=== PATIENT | male | born 1945 | race Caucasian/White ===

== ENCOUNTER 2018-05-06 00:19 | Inpatient (IN) | payer MEDICARE, OTHER ==
[~2018-05-06] VITALS: Ht 182.9 cm; Wt 111.5 kg
[2018-05-06 01:04] LABS: Basophils # (auto) 0.1 uL; Basophils % (auto) 0.6 % (0.0-2.0); Eosinophils # (auto) 0.3 uL; Eosinophils % (auto) 2.8 % (0.0-7.0); Hematocrit 37.8 % (41.0-53.0); Hemoglobin 13.3 g/dL (13.5-17.5); Lymphocytes # (auto) 3.9 uL; Mean Corpuscular Hemoglobin 36.1 pg (28.0-32.0); Mean Corpuscular Hgb Conc. 35.3 g/dL (32.0-36.0); Mean Corpuscular Volume 102.2 fL (80.0-100.0); Monocytes # (auto) 1.4 uL; Monocytes % (auto) 14.8 % (0.0-12.0); Neutrophils # (auto) 3.9 uL; Neutrophils % (auto) 40.8 % (37.0-80.0); Nucleated Red Blood Cells % 0.1 %; Platelet Count (auto) 161 10^3/uL (140-450); Red Cell Distribution Width 14.7 % (11.8-14.3); White Blood Cell 9.6 10^3/uL (4.4-10.8)
[2018-05-06 01:19] LABS: INR 1.23 (0.9-1.15); Partial Thromboplastin Time 30.5 sec (23.78-33.04)
[2018-05-06 01:22] LABS: Albumin 3.4 g/dL (3.4-5.0); BUN/Creatinine Ratio 17.7
[2018-05-06 01:23] LABS: Potassium 2.8 mmol/L (3.5-5.1)
[2018-05-06 01:25] LABS: Bilirubin, Total 2.6 mg/dL (0.2-1.0); Total Protein 7.4 g/dL (6.4-8.2)
[2018-05-06] MEDS ORDERED: POTASSIUM CHL 20 Meq TABLET PO ONE (01:30)
[2018-05-06] MEDS ORDERED: KETOROLAC TROMETH 30 MG/ML 1ML VIAL IV ONE ×2 (01:45→16:15)
[2018-05-06] MEDS ORDERED: fentaNYL CITRATE 100 MCG/2 ML VL IV ONE (01:45)
[2018-05-06] MEDS: POTASSIUM CHL 20MEQ/100ML 100 ML IV SCH ×3 (03:20→05:30)
[2018-05-06] MEDS ORDERED: ONDANSETRON HCL 4 MG/2 ML VIAL IV ONE (06:00)
[2018-05-06] MEDS ORDERED: HYDROmorphone HCL 2 MG/ML VL IV ONE (06:00)
[2018-05-06] MEDS ORDERED: MIDAZOLAM HCL 5 MG/ML-1ML VIAL IV ONE (07:15)
[2018-05-06] MEDS ORDERED: MORPHINE SULFATE 4 MG/ML SYR/VIAL IV PRN (08:15)
[2018-05-06] MEDS ORDERED: ONDANSETRON HCL 4 MG/2 ML VIAL IV PRN (08:15)
[2018-05-06] MEDS ORDERED: ACETAMINOPHEN 500 MG TAB PO PRN (08:15)
[2018-05-06] MEDS ORDERED: POTASSIUM CHL 20MEQ/100ML 100 ML IV ONE (13:00)
[2018-05-06] MEDS: MAGNESIUM SULFATE 1GM/100ML 100 ML IV SCH ×2 (13:17→14:05)
[2018-05-06] MEDS: SOD CHL 0.9%/ KCL 40MEQ 1,000 ML IV SCH (13:54)
[2018-05-06] MEDS ORDERED: ceFAZolin 1GM/50ML 50 ML IV ONE (15:15)
[2018-05-06] MEDS ORDERED: fentaNYL CITRATE 10 ML ONE (15:51)
[2018-05-06] MEDS ORDERED: fentaNYL CITRATE 100 MCG/2 ML VL ONE (15:51)
[2018-05-06] MEDS ORDERED: ROCURONIUM 10MG/ML 10ML VIAL IV ONE (15:51)
[2018-05-06] MEDS ORDERED: SODIUM CHLORIDE LOCK 10 ML ONE (15:51)
[2018-05-06] MEDS ORDERED: MIDAZOLAM HCL 1MG/1ML-2 ML VIAL ONE (15:51)
[2018-05-06] MEDS ORDERED: PROPOFOL 10 MG/ML 20 ML IV ONE (15:51)
[2018-05-06] MEDS ORDERED: HYDROmorphone HCL 2 MG/ML VL IV PRN (16:15)
[2018-05-06] MEDS ORDERED: METOCLOPRAMIDE HCL 5MG/ml INJ 2ml VIAL IV ONE (16:15)
[2018-05-06 19:45] VITALS: BP 130/70
--- NOTE | 2018-05-06 19:45 | NUR ---
S/P OR assessment Patient admitted to room 281A following ORIF of R ankle. Vital signs taken, surgical site assessed for redness, swelling, or bleeding; none noted on dressing/soft cast. Patient instructed on need to inform staff immediately for any pain, swelling, bleeding. Patient verbalized understanding. Alert and appropriately responsive. Ice packs x2 to RLE. Bed low. HOB elev in semi-Dietz's position. Call light attached to R HOB rail.
[2018-05-06 20:00] VITALS: BP 130/70
[2018-05-06 21:37] LABS: Albumin 2.6 g/dL (3.4-5.0); BUN/Creatinine Ratio 19.2; Calcium 7.9 mg/dL (8.5-10.1); Potassium 3.2 mmol/L (3.5-5.1)
[2018-05-06] MEDS: ceFAZolin 1GM/50ML 50 ML IV SCH (21:37)
[2018-05-06 21:40] LABS: Bilirubin, Total 2.1 mg/dL (0.2-1.0); Total Protein 6.2 g/dL (6.4-8.2)
[2018-05-07] MEDS ORDERED: HYDR-4683 PO (02:27)
[2018-05-07 05:28] VITALS: BP 139/80
[2018-05-07] MEDS: ceFAZolin 1GM/50ML 50 ML IV SCH ×2 (06:05→13:57)
[2018-05-07 07:38] LABS: Basophils # (auto) 0 uL; Monocytes # (auto) 0.5 uL
[2018-05-07 07:41] LABS: Basophils % (auto) 0.3 % (0.0-2.0); Eosinophils # (auto) 0.3 uL; Eosinophils % (auto) 6.9 % (0.0-7.0); Hematocrit 33.4 % (41.0-53.0); Hemoglobin 11.8 g/dL (13.5-17.5); Lymphocytes % (auto) 24.5 % (10.0-50.0); Mean Corpuscular Hemoglobin 36.4 pg (28.0-32.0); Mean Corpuscular Hgb Conc. 35.4 g/dL (32.0-36.0); Mean Corpuscular Volume 102.9 fL (80.0-100.0); Monocytes % (auto) 11.8 % (0.0-12.0); Neutrophils # (auto) 2.2 uL; Neutrophils % (auto) 56.5 % (37.0-80.0); Nucleated Red Blood Cells % 0.1 %; Platelet Count (auto) 109 10^3/uL (140-450); Red Blood Cells 3.25 10^6/uL (4.5-5.90); Red Cell Distribution Width 14.6 % (11.8-14.3); White Blood Cell 3.9 10^3/uL (4.4-10.8)
--- NOTE | 2018-05-07 08:00 | NUR ---
Opening Shift Note Assumed care of patient, awake and alert. No S/S of distress/SOB or pain. Instructed on POC and to call for assist PRN, will continue to monitor for changes Q1hr and PRN. Bed is in the lowest position and call light within reach.
[2018-05-07 08:03] LABS: Calcium 7.9 mg/dL (8.5-10.1); Potassium 3.2 mmol/L (3.5-5.1)
[2018-05-07 08:18] LABS: BUN/Creatinine Ratio 23.4
[2018-05-07 09:00] VITALS: BP 111/65
[2018-05-07] MEDS: HYDROcodone-ACET 5/325MG TAB PO PRN ×2 (10:14→21:15)
[2018-05-07 10:58] LABS: Urine Bacteria FEW /hpf (None Seen); Urine Blood Negative /uL (Negative); Urine Hyaline Cast FEW /lpf (0 - 2); Urine Specific Gravity 1.025 (1.001-1.035); Urine WBC 2 /hpf (0 - 3)
[2018-05-07] MEDS ORDERED: POTASSIUM CHLORIDE 8 MEQ TAB PO ONE (11:45)
[2018-05-07 13:00] VITALS: BP 88/42
--- NOTE | 2018-05-07 17:46 | NUR ---
Cooling measure provided for 99.8 degree fever will continue to monitor
[2018-05-07] MEDS: SOD CHL 0.9%/ KCL 40MEQ 1,000 ML IV SCH ×2 (17:47→21:14)
[2018-05-07 18:01] VITALS: BP 100/49
--- NOTE | 2018-05-07 19:55 | NUR ---
open note assumed care of pt. upon entering room, pt awake and alert. no s/s distress noted or expressed. pt update on plan of care. dressing on right foot is clean dry and intact. pt has sensation in foot and is able to move foot and toes. cap refill less than 3 seconds on plantar aspect of foot, toes and nail beds. pt complaints of pain 5/0-10 scale in the affected foot. requests norco "i take that at home", will medicate per MD order. call light in reach. no additional questions or concerns at this time. will continue to monitor.
[2018-05-07 21:47] VITALS: BP 100/47
[2018-05-08 05:18] VITALS: BP 97/48
[2018-05-08] MEDS: SOD CHL 0.9%/ KCL 40MEQ 1,000 ML IV SCH ×3 (05:30→22:19)
[2018-05-08 06:43] LABS: Basophils # (auto) 0 uL; Eosinophils # (auto) 0.2 uL; Monocytes # (auto) 0.7 uL; Nucleated Red Blood Cells % 0.1 %; White Blood Cell 4.4 10^3/uL (4.4-10.8)
[2018-05-08 06:44] LABS: BUN/Creatinine Ratio 23.6; Calcium 7.7 mg/dL (8.5-10.1); Potassium 3.3 mmol/L (3.5-5.1)
[2018-05-08 06:45] LABS: Basophils % (auto) 0.2 % (0.0-2.0); Eosinophils % (auto) 4.5 % (0.0-7.0); Hematocrit 28.7 % (41.0-53.0); Hemoglobin 10.2 g/dL (13.5-17.5); Lymphocytes # (auto) 1.5 uL; Lymphocytes % (auto) 34.7 % (10.0-50.0); Mean Corpuscular Hemoglobin 36.8 pg (28.0-32.0); Mean Corpuscular Hgb Conc. 35.7 g/dL (32.0-36.0); Mean Corpuscular Volume 102.9 fL (80.0-100.0); Monocytes % (auto) 15.1 % (0.0-12.0); Neutrophils % (auto) 45.5 % (37.0-80.0); Platelet Count (auto) 97 10^3/uL (140-450); Red Blood Cells 2.79 10^6/uL (4.5-5.90); Red Cell Distribution Width 14.3 % (11.8-14.3)
--- NOTE | 2018-05-08 07:33 | NUR ---
OPENING NOTE Assumed care of patient from NOC RNAndrea. Patient awake and alert with no S/S of distress/SOB or pain. Dressing to right foot clean, dry and intact. Patient able to move toes right foot and cap refill is <3 seconds. Instructed on POC and to call for assist PRN, verbalized understanding. Bed in lowest, locked position with side rails up x2. Fall precautions in place and call light within reach. Will continue to monitor for changes Q1hr and PRN.
[2018-05-08] MEDS: HYDROmorphone HCL 2 MG/ML VL IV PRN ×2 (08:47→15:42)
[2018-05-08 09:00] VITALS: BP 100/63
[2018-05-08 13:00] VITALS: BP 98/54
--- NOTE | 2018-05-08 13:17 | NUR ---
OUT OF BED Patient is out of bed with PT. No S/S of distress noted.
--- NOTE | 2018-05-08 16:54 | NUR ---
assessment Patient is a 73 year old male who is alert and oriented. Patients cognitive abilities are intact. Prior to admission patient lived home with family and functioned independently. Patient informed me he is able to care for his own ADLs. Per patient he will return home to his prior living arrangements post discharge and family will transport him home. Patient informed me he slipped at home and fractured his ankle. Patient may benefit from home health PT and nursing post discharge. Patients PCP is Dr Banerjee. I informed patient he has a right to speak to a director of social media marketing regarding all care. I informed patient he has a right to participate in any and all discharge planning. Patient is aware of visiting hours on the hospital floor. I informed patient he has a right to privacy. Patient has a POA and advanced directive. Patient verbalized understanding and agreed to discharge plan. Addendum: 05/08/18 at 1657 by Alissa MENDES Amended: Links added.
[2018-05-08 17:07] VITALS: BP 118/77
--- NOTE | 2018-05-08 19:20 | NUR ---
CLOSING NOTE Endorsed care of patient to NOC Rommel QUINTERO.
--- NOTE | 2018-05-08 19:30 | NUR ---
RECEIVED PATIENT LYING IN BED, AWAKE, ALERT, ORIENTED X4. NO S/S OF RESPIRATORY DISTRESS, DENIES SOB AND CHEST PAIN. ORIENTED ON PLAN OF CARE. BED IS LOCKED AND IN LOWEST LEVEL, SIDE RAILS UP 2X, BED AL;ARM ON. CALL LIGHT WITHIN REACH. WILL CONTINUE TO MONITOR.
[2018-05-08] MEDS: HYDROcodone-ACET 5/325MG TAB PO PRN (20:24)
[2018-05-08 22:00] VITALS: BP 146/80
[2018-05-09 05:00] VITALS: BP 155/91
[2018-05-09] MEDS: SOD CHL 0.9%/ KCL 40MEQ 1,000 ML IV SCH ×3 (05:30→18:22)
--- NOTE | 2018-05-09 07:36 | NUR ---
CARE ENDORSED TO AM SHIFT RN
--- NOTE | 2018-05-09 07:40 | NUR ---
Opening Shift Note REceived report from Rommel QUINTERO. Assumed care of patient, awake and alert. No S/S of distress/SOB or pain. NOted right hand swollen due to IV infiltration.Noted right leg with cam boots with dry & intact dressing. Instructed on POC and to call for assist PRN, will continue to monitor for changes Q1hr and PRN.
[2018-05-09 08:00] VITALS: BP 130/70
[2018-05-09 09:00] VITALS: BP 130/70
--- NOTE | 2018-05-09 10:00 | NUR ---
PT REQUESTED THAT P.T. BE DONE LATER.
[2018-05-09] MEDS: HYDROmorphone HCL 2 MG/ML VL IV PRN (10:30)
--- NOTE | 2018-05-09 11:15 | NUR ---
Dr. Rolf Egan at bedside.
--- NOTE | 2018-05-09 11:48 | NUR ---
INFORMED DR. Rolf GILLESPIE ABOUT THE PATIENT'S NEED FOR HOME HEALTH P.T. SAID THAT HE WILL CHECK AND HE WILL BE THE ONE TO PUT THE ORDER IN TODAY.
[2018-05-09 13:16] VITALS: BP 108/60
--- NOTE | 2018-05-09 14:30 | NUR ---
NUTRITION ASSESSMENT NOTES Please refer to link notes of nutrition screen form filed under the intervention section of the plan of care for further details. Est. Needs: 2100 kcal to 1650 kcal (20-25 kcal/kgBW), 84 gms to 106 gms pro (0.8-1.0 gms/kgBW). Will continue to monitor pertinent labs and reassess nutrient needs prn Thank you. Addendum: 05/09/18 at [address] Amended: Links added.
--- NOTE | 2018-05-09 14:57 | NUR ---
PATIENT HAS BEEN ACCEPTED BY [facility]. START OF CARE WILL BE 24 TO 48 HOURS AFTER DISCHARGE. [phone]
[2018-05-09] MEDS: HYDROcodone-ACET 5/325MG TAB PO PRN (16:03)
[2018-05-09 17:00] VITALS: BP 145/82
[2018-05-09 22:00] VITALS: BP 121/54
[2018-05-10] MEDS: HYDROcodone-ACET 5/325MG TAB PO PRN (00:08)
[2018-05-10] MEDS: SOD CHL 0.9%/ KCL 40MEQ 1,000 ML IV SCH ×3 (00:48→13:40)
[2018-05-10 05:00] VITALS: BP 150/98
--- NOTE | 2018-05-10 07:28 | NUR ---
CARE ENDORSED TO AM SHIFT RN
[2018-05-10 09:29] VITALS: BP 129/77
[2018-05-10 11:38] VITALS: BP 129/77
[2018-05-10 13:20] VITALS: BP 108/59
== END 2018-05-10 15:23 | disposition home health service (06) | DRG 488 ==
LOC: ER 00:23 → OVERFLOW 08:15 → WEST WING 19:45
PROVIDERS: ADMIT Nurse Practitioner Family; ATTEND Family Medicine
PROC: 0SSF0ZZ Reposition Right Ankle Joint, Open Approach (ICD-10-PCS; 2018-05-06)
PROC: 0QSJ04Z Reposition Right Fibula with Internal Fixation Device, Open Approach (ICD-10-PCS; 2018-05-06)
PROC: 0QSG04Z Reposition Right Tibia with Internal Fixation Device, Open Approach (ICD-10-PCS; 2018-05-06)
PROC: 0MQN0ZZ Repair Right Knee Bursa and Ligament, Open Approach (ICD-10-PCS; principal; 2018-05-06 16:04)
DX: S82.851A Displaced trimalleolar fracture of right lower leg, initial encounter for closed fracture (principal); M62.82 Rhabdomyolysis; E87.6 Hypokalemia; G89.29 Other chronic pain; M54.9 Dorsalgia, unspecified; I10 Essential (primary) hypertension; W18.39XA Other fall on same level, initial encounter; Y93.89 Activity, other specified; Y92.89 Other specified places as the place of occurrence of the external cause; Y99.8 Other external cause status; Z90.49 Acquired absence of other specified parts of digestive tract
CPT/HCPCS: 36415; 71045; 73600; 73610; 73700; 76000; 80048; 80053; 81001; 82550; 83735; 83880; 84132; 84484; 85025; 85610; 85730; 93005; 96365; 96366; 96375; 97163; A6257; C1713; G0378; J0690; J1885; J2001; J2250; J2405; J2704; J3480